=== PATIENT | male | born 1945 | race Caucasian/White ===

== ENCOUNTER 2016-07-28 13:00 | Outpatient (RCR) | payer MEDICARE, OTHER | END 2016-08-25 | disposition home or self-care (01) | LOC: PTY 13:00 | DX: S93.402D Sprain of unspecified ligament of left ankle, subsequent encounter (principal); X58.XXXD Exposure to other specified factors, subsequent encounter; M76.60 Achilles tendinitis, unspecified leg | CPT/HCPCS: 97035; 97110; 97140; G0283; G8978; G8979 ==

== ENCOUNTER 2016-08-28 13:03 | Outpatient (RCR) | payer MEDICARE, OTHER | END 2016-09-22 | disposition home or self-care (01) | LOC: PTY 13:03 | DX: S93.402D Sprain of unspecified ligament of left ankle, subsequent encounter (principal); X58.XXXD Exposure to other specified factors, subsequent encounter; M76.60 Achilles tendinitis, unspecified leg | CPT/HCPCS: 97110; 97140; G0283; G8979; G8980 ==